=== PATIENT | male | born 1970 | race Caucasian/White ===

== ENCOUNTER 2020-07-29 21:49 | Emergency (ER) | payer OTHER ==
[2020-07-30 00:58] LABS: BASOPHIL 0.5 % (0-2); EOSINOPHIL 1.4 % (0-5); HGB 11.6 g/dl (13.2-18.0); LYMPHOCYTE 13.2 % (15-48); MCH 29.2 pg (25.0-31.0); MCHC 33.1 g/dL (32.0-36.0); MCV 88.2 fL (78.0-100.0); MONOCYTE 7.8 % (0-12); MPV 10.2 fL (6.0-9.5); NEUTROPHIL 76.6 % (41-80); NRBC 0; PLT 256 K/uL (150-400); RBC 3.97 M/uL (4.70-6.00); RDW 13.2 % (11.5-14.0); WBC 15.6 K/uL (4.0-10.5)
[2020-07-30 01:10] LABS: ALBUMIN 2.7 g/dL (3.4-5.0); BILIRUBIN - TOTAL 0.2 mg/dL (0.2-1.0); CREATININE 0.95 mg/dL (0.67-1.17); GLOBULIN (CALCULATION) 4.3 g/dL; POTASSIUM 4.6 mmol/L (3.5-5.1)
[2020-07-30 01:24] LABS: LACTIC ACID 0.8 mmol/L (0.4-1.9)
[2020-07-30] MEDS ORDERED: BACTRIM DS TAB1 EACH PO (03:38)
[2020-07-30] MEDS ORDERED: CEPHALEXIN500 M1 PO (03:38)
== END 2020-07-30 03:50 ==
LOC: FER 21:49
PROVIDERS: Emergency Medicine Emergency Medical Services
DX: L02.413 Cutaneous abscess of right upper limb (principal); L03.113 Cellulitis of right upper limb; F17.210 Nicotine dependence, cigarettes, uncomplicated
CPT/HCPCS: 36415; 80053; 83605; 85025; 87070; 87077; 87186; 87205; 96365; 96366; 96375; J1885; J3370; J7050